=== PATIENT | female | born 1940 | race Caucasian/White ===

== ENCOUNTER 2017-08-18 04:29 | Day surgery (SDC) | payer OTHER ==
[~2017-08-18 04:29] MED LIST: JANUMET 50-5001 EACH PO; LOSARTAN POTASS50 MG PO; TENORMIN50 M1 PO
== END 2017-08-18 10:20 | disposition home or self-care (01) ==
LOC: CIR.AMB 04:29
DX: D21.12 Benign neoplasm of connective and other soft tissue of left upper limb, including shoulder (principal)